=== PATIENT | male | born 1965 | race Caucasian/White ===

== ENCOUNTER 2017-03-29 10:04 | Day surgery (SDC) | payer BC ==
--- NOTE | 2017-03-29 07:55 | HP ---
DATE OF SURGERY: 03/29/2017 ADMISSION DIAGNOSIS: Symptomatic cholelithiasis. ANTICIPATED PROCEDURE: Laparoscopic cholecystectomy. HISTORY OF PRESENT ILLNESS: The patient is 52 years old. Ultrasound revealing stones. Options discussed with the family and wished to proceed. PAST MEDICAL HISTORY: ALLERGIES: PENICILLIN. MEDICATIONS: Exforge, Pradaxa, Bystolic, Metformin, Lipitor, Dexilant, potassium, triamterene hydrochlorothiazide, aspirin, amiodarone, levothyroxine. PAST SURGICAL HISTORY: Heart cath, colonoscopy. SOCIAL HISTORY: Negative. FAMILY HISTORY: Negative. REVIEW OF SYSTEMS: Heart disease. PHYSICAL EXAMINATION: VITAL SIGNS: Normal. CHEST: Clear. COR: Regular. ABDOMEN: No palpable organomegaly or mass. IMPRESSION: Symptomatic cholelithiasis. PLAN: Laparoscopic cholecystectomy.
[~2017-03-29 10:04] MED LIST: CLINDAMYCIN-D5W 900 MG/50 ML*** 900 MG/50 ML BAG IV SCH; Lactated Ringers 1,000 ML IV ONE; Lactated Ringers 1,000 ML IV SCH; Levofloxacin 500MG/100ML D5W 500 MG/100 ML BAG IV SCH; Sensorcaine 0.25% 10 ML ONE
[2017-03-29] MEDS ORDERED: DIPRIVAN 200 MG/20 ML IV ONE (10:05)
[2017-03-29] MEDS ORDERED: Quelicin Fliptop 200 MG/10 ML IV ONE (10:05)
[2017-03-29] MEDS ORDERED: BRIDION 200MG/2ML IV ONE (10:05)
[2017-03-29] MEDS ORDERED: Zemuron 100 MG/10 ML IV ONE (10:05)
[2017-03-29] MEDS ORDERED: Versed 2 MG/2 ML Injection IV ONE (10:05)
[2017-03-29] MEDS ORDERED: SUBLIMAZE 250 MCG/5 ML IV ONE (10:05)
[2017-03-29] MEDS ORDERED: Levofloxacin 500MG/100ML D5W 500 MG/100 ML BAG IV ONE (10:21)
[2017-03-29] MEDS ORDERED: Lactated Ringers 1,000 ML IV ONE (10:21)
[2017-03-29] MEDS ORDERED: SUBLIMAZE 100 MCG/2 ML ONE (14:15)
[2017-03-29] MEDS ORDERED: APRESOLINE 20 MG/ML INJ ONE (14:28)
--- NOTE | 2017-03-29 15:06 | OP ---
SURGERY DATE: 03/29/17 SURGERY TIME: 1307 PREOPERATIVE DIAGNOSIS: 1. SYMPTOMATIC CHOLELITHIASIS. POSTOPERATIVE DIAGNOSIS: 1. SYMPTOMATIC CHOLELITHIASIS WITH CHOLESTEROLOSIS. PROCEDURE: 1. Laparoscopic cholecystectomy. SURGEON: Yuri Dale M.D. ANESTHESIA: General endotracheal tube. COMPLICATIONS: None. CONDITION: Stable. INDICATION: Patient with upper abdominal pain. US revealing stones. Seen and examined. Multiple medical problems. Procedure discussed with him. He wished to proceed. OPERATIVE PROCEDURE: Taken to surgery. General anesthetic. Routine prep and drape. Veress needle at the umbilicus. Opened to a pressure of 9. Insufflated to a pressure of 14. Four 5s initially. There were significant adhesions of the omentum against the gallbladder taken down. Gallbladder was markedly bloated. There was marked inflammation in the fay and there was obvious cholesterolosis. The gallbladder neck was dissected. At this time, some of the thinner mucosa was rupturing. It was suctioned. There was obvious cholesterolosis. The infundibulum was able to be picked up and pulled laterally. The cystic artery was able to be individually taken. The cystic was taken at the base of the infundibulum with the stapling device 2.5 vascular cartridge and transected. Staple line looked excellent. There was no suggestion of any bile color or leakage. Gallbladder rolled out of gallbladder fossa. Gallbladder delivered through the upper abdominal port. The upper abdominal port was closed with the hole closure device. The field was irrigated. It was dry. A 10 LEONARDO was placed in the gallbladder fossa. Secured with 0 PDS. Skin closed with pam. Sterile dressing applied. Patient tolerated the procedure satisfactory.
[2017-03-29] MEDS ORDERED: MORPHINE SULFATE 2 MG INJ IV PRN (15:10)
[2017-03-29 18:35] VITALS: O2SAT 96
[2017-03-29 18:38] VITALS: BP 158/82; PULSE 60
== END 2017-03-29 16:35 | disposition home or self-care (01) ==
LOC: SDC 10:04
PROVIDERS: ATTEND Surgery
PROC: 0FT44ZZ Resection of Gallbladder, Percutaneous Endoscopic Approach (ICD-10-PCS; principal; 2017-03-29)
DX: K80.20 Calculus of gallbladder without cholecystitis without obstruction (principal); I51.9 Heart disease, unspecified; E11.9 Type 2 diabetes mellitus without complications; Z79.4 Long term (current) use of insulin; Z79.899 Other long term (current) drug therapy
CPT/HCPCS: 00790; 36415; 82962; 88304; J0330; J0360; J1956; J2250; J2270; J2704; J3010